=== PATIENT | male | born 2000 | race Caucasian/White ===

== ENCOUNTER 2019-11-21 12:53 | Emergency (ER) | payer BC ==
[~2019-11-21] VITALS: Ht 188 cm; Wt 76.2 kg
[2019-11-21 14:28] VITALS: BP 135/88
== END 2019-11-21 14:29 | disposition home or self-care (01) ==
LOC: M.ERS 12:53
DX: S60.222A Contusion of left hand, initial encounter (principal); W01.0XXA Fall on same level from slipping, tripping and stumbling without subsequent striking against object, initial encounter; Y93.89 Activity, other specified; Y92.89 Other specified places as the place of occurrence of the external cause; Y99.8 Other external cause status

== ENCOUNTER 2020-11-02 23:24 | Emergency (ER) | payer BC ==
[~2020-11-02] VITALS: Ht 182.9 cm; Wt 68.0 kg
[2020-11-03 00:11] LABS: ABSOLUTE BASOPHILS 0.1 thou/uL (0.0-0.2); ABSOLUTE EOSINOPHILS 0.1 thou/uL (0.0-0.7); ABSOLUTE LYMPHOCYTES 2.6 thou/uL (0.8-5.3); ABSOLUTE NEUTROPHILS 7.2 thou/uL (1.6-8.1); BASOPHILS 0.5 %; EOSINOPHILS 1.2 %; HEMATOCRIT 47.1 % (42.0-52.0); HEMOGLOBIN 15.9 gm/dL (14.0-18.0); MCH 30.9 pg (26.0-34.0); MCHC 33.8 g/dL (28.0-37.0); MCV 91.6 fL (80.0-100.0); MPV 9.4 fl. (7.2-11.1); NUCLEATED RBCS 0 /100WBC; PLATELET COUNT* 179 thou/uL (150-400); POLYS 65.3 %; RBC 5.15 mil/uL (4.50-6.00); RDW-CV 13.1 % (10.5-14.5)
[2020-11-03 00:19] LABS: CALCIUM 9.8 mg/dL (8.5-10.1); CREATININE 1.2 mg/dL (0.6-1.3); POTASSIUM 3.8 mmol/L (3.5-5.1)
[2020-11-03 00:24] LABS: ALBUMIN 4.4 g/dL (3.4-5.0); TOTAL BILIRUBIN 0.6 mg/dL (<0.1-1.0); TOTAL PROTEIN 7.4 g/dL (6.4-8.2)
[2020-11-03] MEDS ORDERED: DICYCLOMINE HCL20 MG PO (01:10)
[2020-11-03 01:15] LABS: URINE BILIRUBIN NEGATIVE (Negative); URINE BLOOD NEGATIVE (Negative); URINE CLARITY CLEAR; URINE COLOR YELLOW; URINE GLUCOSE-RANDOM NEGATIVE (Negative); URINE KETONES NEGATIVE (Negative); URINE LEUKOCYTES-REFLEX NEGATIVE (Negative); URINE NITRITE-REFLEX NEGATIVE (Negative); URINE PROTEIN NEGATIVE (Negative); URINE UROBILINOGEN 0.2 E.U./dl (0.2-1.0)
[2020-11-03 01:24] LABS: AMP/METHAMP Negative (Negative); BARBITURATES Negative (Negative); BENZODIAZEPINES Negative (Negative); COCAINE Negative (Negative); METHADONE Negative (Negative); OPIATES Negative (Negative); PCP Negative (Negative); THC POSITIVE (Negative)
[2020-11-03 01:32] VITALS: BP 122/67
== END 2020-11-03 01:32 | disposition home or self-care (01) ==
LOC: M.ERS 23:24
PROVIDERS: Personal Emergency Response Attendant
DX: K58.9 Irritable bowel syndrome, unspecified (principal); Z20.828 Contact with and (suspected) exposure to other viral communicable diseases

== ENCOUNTER 2021-05-24 08:30 | Emergency (ER) | payer BC ==
[~2021-05-24] VITALS: Ht 185.4 cm; Wt 70.3 kg
[~2021-05-24 08:30] MED LIST: DICYCLOMINE HCL20 MG PO
[2021-05-24 09:40] LABS: ABSOLUTE EOSINOPHILS 0.2 thou/uL (0.0-0.7); ABSOLUTE LYMPHOCYTES 2.1 thou/uL (0.8-5.3); ABSOLUTE MONOCYTES 0.5 thou/uL (0.0-1.2); BASOPHILS 0.5 %; EOSINOPHILS 3.1 %; HEMATOCRIT 44.9 % (42.0-52.0); HEMOGLOBIN 15.1 gm/dL (14.0-18.0); LYMPHOCYTES 30.7 %; MCH 31.2 pg (26.0-34.0); MCHC 33.7 g/dL (28.0-37.0); MCV 92.8 fL (80.0-100.0); MONOCYTES 7.4 %; MPV 9.4 fl. (7.2-11.1); NUCLEATED RBCS 0 /100WBC; PLATELET COUNT* 189 thou/uL (150-400); POLYS 58.3 %; RBC 4.84 mil/uL (4.50-6.00); RDW-CV 13.5 % (10.5-14.5); WBC 6.8 thou/uL (4.0-11.0)
[2021-05-24 09:41] LABS: URINE BILIRUBIN NEGATIVE (Negative); URINE BLOOD NEGATIVE (Negative); URINE CLARITY CLEAR; URINE COLOR YELLOW; URINE GLUCOSE-RANDOM NEGATIVE (Negative); URINE KETONES NEGATIVE (Negative); URINE LEUKOCYTES-REFLEX NEGATIVE (Negative); URINE NITRITE-REFLEX NEGATIVE (Negative); URINE PROTEIN NEGATIVE (Negative); URINE SPECIFIC GRAVITY >= 1.030 (1.005-1.030); URINE UROBILINOGEN 0.2 E.U./dl (0.2-1.0)
[2021-05-24 09:49] LABS: AMP/METHAMP Negative (Negative); BARBITURATES Negative (Negative); BENZODIAZEPINES Negative (Negative); COCAINE Negative (Negative); METHADONE Negative (Negative); OPIATES Negative (Negative); PCP Negative (Negative); THC POSITIVE (Negative)
[2021-05-24 09:49] LABS: CALCIUM 8.8 mg/dL (8.5-10.1); CREATININE 1.2 mg/dL (0.6-1.3); POTASSIUM 3.8 mmol/L (3.5-5.1)
[2021-05-24 09:53] LABS: ALBUMIN 4.2 g/dL (3.4-5.0); TOTAL BILIRUBIN 0.3 mg/dL (<0.1-1.0); TOTAL PROTEIN 7.1 g/dL (6.4-8.2)
[2021-05-24] MEDS ORDERED: HYDROCODON-ACE1 EAC7 PO (11:52)
[2021-05-24] MEDS ORDERED: ZOFRAN ODT4 MG DISSOLVE (11:52)
[2021-05-24 12:38] VITALS: BP 123/47
--- NOTE | 2021-05-25 10:14 | EKG ---
[place] [address] ELECTROCARDIOGRAM REPORT Name: SHELBY DUFFY I Room: [facility]#: [id number] Admission: 05/24/21 Attend Phys: Discharge: 05/24/21 Date of : 89 Date of Service: 05/24/21927 Report #: [id number] THIS REPORT FOR: //name// [facility] ED Test Date: 2021-05-24 Test Time: 09:28:43 Pat Name: SHELBY DUFFY Department: Room: Gender: Utility System [employer]r: : 2000 Requested By: Yvon Garg Order Number: [id number] MD: Craig Osborn Measurements Intervals [place] Rate: 57 P: -20 AK: 155 QRS: 83 QRSD: 108 T: 68 QT: 398 QTc: 388 Interpretive Statements Sinus rhythm ST elevation suggests acute pericarditis No previous ECG available for comparison Electronically Signed On 05-25-2021 10:14:24 CDT by Craig Osborn [email or web address] <ELECTRONICALLY SIGNED> By: Craig Osborn MD, [facility] 05/25/21 1014 7 7 Craig Osborn MD, FACC /EPI
== END 2021-05-24 12:37 | disposition home or self-care (01) ==
LOC: M.ERS 08:30
PROVIDERS: Emergency Medicine Emergency Medical Services
DX: R10.33 Periumbilical pain (principal); R11.2 Nausea with vomiting, unspecified; R10.30 Lower abdominal pain, unspecified; Z79.899 Other long term (current) drug therapy

== ENCOUNTER 2021-10-29 18:31 | Emergency (ER) | payer BC ==
[~2021-10-29] VITALS: Ht 185.4 cm; Wt 70.3 kg
[~2021-10-29 18:31] MED LIST changes: +HYDROCODON-ACE1 EAC7 PO; +ZOFRAN ODT4 MG DISSOLVE
[2021-10-29] MEDS ORDERED: ACETAMINOPHEN-1 EAC2 PO (20:23)
[2021-10-29] MEDS ORDERED: IBUPROFEN 800800 M1 PO (20:28)
[2021-10-29 20:35] VITALS: BP 144/76
== END 2021-10-29 20:35 | disposition home or self-care (01) ==
LOC: M.ERS 18:31
DX: S62.396A Other fracture of fifth metacarpal bone, right hand, initial encounter for closed fracture (principal); W22.09XA Striking against other stationary object, initial encounter; Y93.89 Activity, other specified; Y92.89 Other specified places as the place of occurrence of the external cause; Y99.8 Other external cause status